=== PATIENT | female | born 1960 | race Caucasian/White ===

== ENCOUNTER 2021-11-23 04:03 | Observation (INO) ==
[2021-11-23] MEDS ORDERED: *HR* Metoprolol 5 MG/5 ML VIAL IVP PRN ×2 (09:56→18:23)
[2021-11-23] MEDS ORDERED: Ketorolac 30 MG/ML VIAL IVP PRN (09:56)
[2021-11-23] MEDS ORDERED: Ondansetron 4 MG/2 ML VIAL IVP PRN ×2 (09:56→18:23)
[2021-11-23] MEDS ORDERED: 0.9 % Sodium Chloride 1,000 ML IVC SCH (10:00)
[2021-11-23 11:52] LABS: Basophils % 0.1 %; Hematocrit 36.7 % (35.3-44.9); Immature Granulocytes % 0.3 % (0-4); Lymphocytes # 0.7 K/mcL (0.6-4.6); Lymphocytes % 5.2 %; Mean Corpuscular HGB Conc 32.7 g/dL (31.6-35.5); Mean Corpuscular Hemoglobin 29.6 pg (28.0-33.3); Mean Corpuscular Volume 90.4 fL (83.0-100.0); Mean Platelet Volume 10.7 fL (9.4-12.4); Monocytes # 1.1 K/mcL (0.0-1.3); Monocytes % 8.2 %; Neutrophils # 11.5 K/mcL (1.6-8.9); Platelet Count 178 K/mcL (140-400); Red Blood Count 4.06 M/mcL (3.82-4.97); Red Cell Distribution Width 13.2 % (11.5-14.5); Segmented Neutrophils % 86.2 %; White Blood Count 13.3 K/mcL (4.3-11.1)
[2021-11-23 12:13] LABS: BUN/Creatinine Ratio 17 (6-26); Blood Urea Nitrogen 15 mg/dL (8-23); Calcium 9.1 mg/dL (8.6-10.3); Carbon Dioxide 28 mEq/L (23-29); Chloride 103 mEq/L (98-107); Glucose 121 mg/dL (70-105); Osmolality,Calculated 286 (280-300); Potassium 4.4 mEq/L (3.5-5.1); Sodium 137 mEq/L (136-145); eGFR For African Americans > 60 (> 60); eGFR For Non-African Americans > 60 (> 60)
[2021-11-23] MEDS ORDERED: *HR* FentaNYL (PF) 100 MCG/2 ML VIAL IVP PRN (14:22)
[2021-11-23] MEDS ORDERED: *HR* HYDROmorphone PF 0.5 MG/0.5 ML SYRINGE IVP PRN (14:22)
[2021-11-23] MEDS ORDERED: *HR* FentaNYL (PF) 100 MCG/2 ML VIAL ONE (15:11)
[2021-11-23] MEDS ORDERED: *HR* Propofol 200 MG/20 ML VIAL IVP ONE (15:11)
[2021-11-23] MEDS ORDERED: *HR* Rocuronium Bromide 50 MG/5 ML VIAL ONE (15:11)
[2021-11-23] MEDS ORDERED: Lidocaine -MPF 2% 5 ML VIAL ONE (15:11)
[2021-11-23] MEDS ORDERED: Ondansetron 4 MG/2 ML VIAL ONE (15:11)
[2021-11-23] MEDS ORDERED: Lidocaine -MPF 4% 5 ML AMPUL ONE (15:11)
[2021-11-23] MEDS ORDERED: MetroNIDAZOLE 500 MG/100 ML 500 MG/100 ML BAG IVPB SCH (16:00)
[2021-11-23] MEDS ORDERED: Ketorolac 30 MG/ML VIAL IVP ONE (16:41)
[2021-11-23] MEDS ORDERED: Ketorolac 30 MG/ML VIAL ONE (16:42)
[2021-11-23] MEDS ORDERED: Sugammadex Sodium 200 MG/2 ML VIAL IV ONE (16:43)
[2021-11-23 18:49] LABS: Basophils % 0.2 %; Eosinophils % 0.1 %; Hematocrit 37.6 % (35.3-44.9); Hemoglobin 12.2 g/dL (11.5-15.4); Immature Granulocytes % 0.4 % (0-4); Lymphocytes # 0.6 K/mcL (0.6-4.6); Lymphocytes % 4.7 %; Mean Corpuscular HGB Conc 32.4 g/dL (31.6-35.5); Mean Corpuscular Hemoglobin 29.5 pg (28.0-33.3); Mean Platelet Volume 10.6 fL (9.4-12.4); Monocytes # 0.5 K/mcL (0.0-1.3); Neutrophils # 12.2 K/mcL (1.6-8.9); Platelet Count 170 K/mcL (140-400); Red Blood Count 4.13 M/mcL (3.82-4.97); Red Cell Distribution Width 13.6 % (11.5-14.5); Segmented Neutrophils % 90.6 %; White Blood Count 13.5 K/mcL (4.3-11.1)
[2021-11-23] MEDS: Ketorolac 30 MG/ML VIAL IVP PRN (21:19)
[2021-11-24] MEDS: MetroNIDAZOLE 500 MG/100 ML 500 MG/100 ML BAG IVPB SCH ×2 (00:15→08:21)
[2021-11-24 11:20] VITALS: BP 111/68; PULSE 70; TEMP 98.1; O2SAT 97
[2021-11-24 12:28] LABS: Basophils % 0.2 %; Eosinophils % 0.3 %; Hematocrit 34.4 % (35.3-44.9); Hemoglobin 10.9 g/dL (11.5-15.4); Immature Granulocytes % 0.3 % (0-4); Lymphocytes # 1.1 K/mcL (0.6-4.6); Lymphocytes % 10.7 %; Mean Corpuscular HGB Conc 31.7 g/dL (31.6-35.5); Mean Corpuscular Hemoglobin 29.1 pg (28.0-33.3); Mean Platelet Volume 10.8 fL (9.4-12.4); Monocytes # 1.1 K/mcL (0.0-1.3); Monocytes % 10.4 %; Neutrophils # 8.1 K/mcL (1.6-8.9); Platelet Count 162 K/mcL (140-400); Red Blood Count 3.74 M/mcL (3.82-4.97); Red Cell Distribution Width 13.8 % (11.5-14.5); Segmented Neutrophils % 78.1 %; White Blood Count 10.4 K/mcL (4.3-11.1)
[2021-11-24] MEDS: Ketorolac 30 MG/ML VIAL IVP PRN (13:30)
== END 2021-11-24 13:51 | disposition home or self-care (01) ==
LOC: 4WAOSI
PROVIDERS: ADMIT Surgery; ATTEND Surgery